=== PATIENT | female | born 1980 | race Caucasian/White ===

== ENCOUNTER 2017-07-26 17:38 | Emergency (ER) | payer OTHER ==
--- NOTE | 2017-07-26 17:51 | EDPHY ---
H & P Time Seen by Provider: 07/26/17 17:50 HPI/ROS: HPI: This is a 37-year-old female who presents with Chief Complaint: Pain in left side Location: Left side Quality: Pain Duration: Prior to arrival Signs and Symptoms: no fever, + nausea, no vomiting, no hematemesis, no blood in stool, no abdominal bloating, no diarrhea, no back pain, no urinary symptoms , no vaginal discharge/bleeding, no indigestion, no chest pain, no shortness of breath Timing: Acute Severity: 03/28 Context: Patient has a history of bulimia, depression, anxiety presents from her office with complaints of sudden onset of severe, 03/28, left side pain that radiates across her umbilicus accompanied by nausea. Denies fever/diarrhea /vomiting/vaginal bleeding/vaginal discharge. Patient was lying on the ground in the emergency room triage room due to the pain being so severe. She reports that she had a bowel movement today. Her last menstrual period was 1 week ago. She denies any history of kidney stones/ovarian cyst/fibroids. Denies any trauma or injury. She was able to eat breakfast and lunch today without difficulty. Modifying Factors: None Comment: ROS: see HPI Constitutional: No fever, no chills, no weight loss Eyes: No blurred vision Respiratory: No shortness of breath, no cough Cardiovascular: No chest pain, no palpitations Gastrointestinal: + nausea, no vomiting, no diarrhea, no hematemesis, no blood in stool Genitourinary: No dysuria, no blood in urine Extremities: No myalgias, no edema Neurologic: No weakness, no numbness Skin: No rashes, no petechiae Hematologic: No bruising, no bleeding MEDICAL/SURGICAL/SOCIAL HISTORY: Medical history: HX Bulimia 2002, Hx Depression/Anxiety ongoing (fine at the moment per pt), 06/2013, Rash contact dermatitis/psoriasis to Leg, Thrombosed hemorrhoid Surgical history: Denies Social history: Employed CONSTITUTIONAL: Moderate distress, adult white female lying in position, awake and alert, no obvious distress HEENT: Atraumatic and normocephalic, PERRL, EOMI. Tympanic membranes clear. Oropharynx clear, no exudate and moist pink mucosa. Airway patent. No lymphadenopathy. No meningismus. Cardiovascular: Normal S1/S2, regular rate, regular rhythm, without murmur rub or gallop. PULMONARY/CHEST: Symmetrical and nontender. Clear to auscultation bilaterally. Good air movement. No accessory muscle usage. ABDOMEN: Soft, nondistended, generalized tenderness with moderate pain in the left mid abdomen, no rebound, no guarding, no peritoneal signs, no masses or organomegaly. No CVAT. EXTREMITIES: 2/2 pulses, strength 5/5, no deformities, no clubbing, no cyanosis or edema. No pain in her abdomen with lifting her legs up off of the bed or flexing her hips. NEUROLOGICAL: no focal neuro deficits. GCS 15. SKIN: Warm and dry, no erythema. no rash. Good capillary refill. Source: Patient Exam Limitations: No limitations - Personal History Tetanus Vaccine Date: 2014 - Medical/Surgical History Other PMH: HX Bulemia 2002, Hx Depression/Anxiety ongoing (fine at the moment per pt), 06/2013, Rash contact dermatitis/psoriasis to Leg, Thrombosed hemmrhoid - Social History Smoking Status: Never smoked Constitutional: Initial Vital Signs Temperature (C) 36.4 C 07/26/17 17:50 Heart Rate 83 07/26/17 17:50 Respiratory Rate 18 07/26/17 17:50 Blood Pressure 96/59 L 07/26/17 17:50 O2 Sat (%) 100 07/26/17 17:50 O2 Delivery Mode Room Air Allergies/Adverse Reactions: No Known Allergies Allergy (Verified 07/26/17 17:50) Home Medications: Medication Instructions Recorded Ondansetron Odt [Zofran Odt 4 mg 4 mg PO Q4 PRN #12 tab 07/26/17 (*)] Tamsulosin HCl [Flomax 0.4 MG (*)] 0.4 mg PO DAILY #10 cap 07/26/17 oxyCODONE/APAP 5/325 [Percocet 1 - 2 tab PO Q6H PRN #20 tab 07/26/17 5/325 (*)] Medical Decision Making - Diagnostics Imaging Results: Imaging Impressions Abdomen CT 07/26/17 17:56 Impression: 1. Moderate left hydroureteronephrosis secondary to a 6.5-mm obstructing calculus in the mid to distal left ureter, mid pelvis region. 2. No right nephrolithiasis or hydronephrosis. Findings and recommendations discussed with Emergency Department Physician Door Liner, Marielle Negron PA-C, at 1923 hours, on July 26, 2017. Final report concurs with initial preliminary interpretation. Pelvic/Renal Ultrasound 07/26/17 17:56 Impression: 1. Normal left ovary, without torsion or adnexal masses. 2. Nonvisualization of the right ovary. 3. Normal uterus. 4. No significant free fluid in the pelvis. Findings and recommendations discussed with Emergency Department Physician Door Liner, Marielle Negrno PA-C, at 1858 hours, on July 26, 2017. Final report concurs with initial preliminary interpretation. ED Course/Re-evaluation: Urinalysis, labs, IV fluids, CT abdomen and pelvis scan, pelvic ultrasound, IV medications ordered Patient given IV Dilaudid 1 mg, 1 L normal saline, 1 IV Zofran Vital signs reviewed and unremarkable. 1833: Notified by the nurse that patient is still wailing and writhing in bed despite the 1 mg of Dilaudid given. IV Haldol 2.5 mg ordered Called by Radiology who says reports that CT abdomen and pelvis scan shows a left ureterolithiasis measuring 6.5 cm in the mid pelvis with moderate hydronephrosis P.o. Flomax and IV Toradol given. Urinated again and without difficulty. Pelvic ultrasound shows no signs of ovarian torsion/ovarian cyst rupture Reassessed patient: abdomen soft and nontender. Walking out of the emergency room holding hands with her co-worker laughing and giggling. This patient was seen under the supervision of my secondary supervising physician. I evaluated care for this patient independently. Differential Diagnosis: Abdominal pain in a female including but not limited to ovarian cyst, pelvic inflammatory disease, ovarian torsion, urinary tract infection, and appendicitis. - Data Points Laboratory Results: Laboratory Results 07/26/17 17:55 07/26/17 17:55 07/26/17 07/26/17 07/26/17 19:20 17:55 17:55 WBC RBC Hgb Hct MCV MCH MCHC RDW Plt Count MPV Neut % (Auto) Lymph % (Auto) [place] % (Auto) Eos % (Auto) Baso % (Auto) Nucleat RBC Rel Count Absolute Neuts (auto) Absolute Lymphs (auto) Absolute Monos (auto) Absolute Eos (auto) Absolute Basos (auto) Absolute Nucleated RBC Immature Gran % Immature Gran # Sodium 139 mEq/L mEq/L (135-145) Potassium 3.4 mEq/L L mEq/L (3.5-5.2) Chloride 102 mEq/L mEq/L (97-110) Carbon Dioxide 21 mEq/l L mEq/l (22-31) Anion Gap 16 mEq/L mEq/L (8-16) BUN 12 mg/dL mg/dL (7-23) Creatinine 0.8 mg/dL mg/dL (0.6-1.0) Estimated GFR > 60 Glucose 116 mg/dL H mg/dL (70-100) Calcium 9.4 mg/dL mg/dL (8.5-10.4) Total Bilirubin 0.7 mg/dL mg/dL (0.1-1.4) Conjugated Bilirubin 0.3 mg/dL mg/dL (0.0-0.5) Unconjugated Bilirubin 0.4 mg/dL mg/dL (0.0-1.1) AST 22 IU/L IU/L (14-46) ALT 30 IU/L IU/L (9-52) Alkaline Phosphatase 74 IU/L IU/L (38-126) Total Protein 7.7 g/dL g/dL (6.3-8.2) Albumin 4.4 g/dL g/dL (3.5-5.0) Lipase 109 IU/L IU/L (23-300) Beta HCG, Qual NEGATIVE Urine Color YELLOW Urine Appearance HAZY Urine pH 7.0 (5.0-7.5) Ur Specific [place] 1.032 H (1.002-1.030) Urine Protein NEGATIVE (NEGATIVE) Urine Ketones 1+ H (NEGATIVE) Urine Blood 3+ H (NEGATIVE) Urine Nitrate NEGATIVE (NEGATIVE) Urine Bilirubin NEGATIVE (NEGATIVE) Urine Urobilinogen 2.0 EU H EU (0.2-1.0) Ur Leukocyte Esterase NEGATIVE (NEGATIVE) Urine RBC 50-182 /hpf H /hpf (0-3) Urine WBC 3-5 /hpf H /hpf (0-3) Ur Epithelial Cells TRACE /lpf /lpf (NONE-1+) Urine Mucus TRACE /lpf /lpf (NONE-1+) Urine Glucose NEGATIVE (NEGATIVE) 07/26/17 17:55 WBC 11.09 10^3/uL H 10^3/uL (3.80-9.50) RBC 4.74 10^6/uL 10^6/uL (4.18-5.33) Hgb 15.4 g/dL g/dL (12.6-16.3) Hct 43.8 % % (38.0-47.0) MCV 92.4 fL fL (81.5-99.8) MCH 32.5 pg pg (27.9-34.1) MCHC 35.2 g/dL g/dL (32.4-36.7) RDW 11.9 % % (11.5-15.2) Plt Count 281 10^3/uL 10^3/uL (150-400) MPV 10.1 fL fL (8.7-11.7) Neut % (Auto) 41.2 % % (39.3-74.2) Lymph % (Auto) 53.8 % H % (15.0-45.0) Town[place] % (Auto) 3.4 % L % (4.5-13.0) Eos % (Auto) 0.9 % % (0.6-7.6) Baso % (Auto) 0.4 % % (0.3-1.7) Nucleat RBC Rel Count 0.0 % % (0.0-0.2) Absolute Neuts (auto) 4.57 10^3/uL 10^3/uL (1.70-6.50) Absolute Lymphs (auto) 5.97 10^3/uL H 10^3/uL (1.00-3.00) Absolute Monos (auto) 0.38 10^3/uL 10^3/uL (0.30-0.80) Absolute Eos (auto) 0.10 10^3/uL 10^3/uL (0.03-0.40) Absolute Basos (auto) 0.04 10^3/uL 10^3/uL (0.02-0.10) Absolute Nucleated RBC 0.00 10^3/uL 10^3/uL (0-0.01) Immature Gran % 0.3 % % (0.0-1.1) Immature Gran # 0.03 10^3/uL 10^3/uL (0.00-0.10) Sodium Potassium Chloride Carbon Dioxide Anion Gap BUN Creatinine Estimated GFR Glucose Calcium Total Bilirubin Conjugated Bilirubin Unconjugated Bilirubin AST ALT Alkaline Phosphatase Total Protein Albumin Lipase Beta HCG, Qual Urine Color Urine Appearance Urine pH Ur Specific [place] Urine Protein Urine Ketones Urine Blood Urine Nitrate Urine Bilirubin Urine Urobilinogen Ur Leukocyte Esterase Urine RBC Urine WBC Ur Epithelial Cells Urine Mucus Urine Glucose Medications Given: Discontinued Medications Haloperidol Lactate (Haldol Injection) 2.5 mg IVP EDNOW ONE Stop: 07/26/17 18:34 Last Admin: 07/26/17 18:38 Dose: 2.5 mg Hydromorphone HCl (Dilaudid) 1 mg IVP EDNOW ONE Stop: 07/26/17 17:56 Last Admin: 07/26/17 18:00 Dose: 1 mg Sodium Chloride (Ns) 1,000 mls @ 0 mls/hr IV EDNOW ONE; Wide Open PRN Reason: Protocol Stop: 07/26/17 17:56 Last Admin: 07/26/17 17:59 Dose: 1,000 mls Sodium Chloride (Ns) 1,000 mls @ 0 mls/hr IV ONCE ONE PRN Reason: Wide Open Stop: 07/26/17 18:01 Last Admin: 07/26/17 18:00 Dose: 1,000 mls Sodium Chloride (Ns) 1,000 mls @ 0 mls/hr IV EDNOW ONE; Wide Open PRN Reason: Protocol Stop: 07/26/17 19:46 Last Admin: 07/26/17 20:25 Dose: Not Given Ketorolac Tromethamine (Toradol) 15 mg IVP EDNOW ONE Stop: 07/26/17 19:34 Last Admin: 07/26/17 20:06 Dose: 15 mg Ondansetron HCl (Zofran) 4 mg IVP EDNOW ONE Stop: 07/26/17 17:56 Last Admin: 07/26/17 18:00 Dose: 4 mg Oxycodone/Acetaminophen (Percocet 5/325) 2 tab PO EDNOW ONE Stop: 07/26/17 20:45 Last Admin: 07/26/17 20:15 Dose: 2 tab Tamsulosin HCl (Flomax) 0.4 mg PO EDNOW ONE Stop: 07/26/17 19:34 Last Admin: 07/26/17 20:07 Dose: 0.4 mg Departure - Departure Disposition: Home, Routine, Self-Care Clinical Impression: Renal colic on left side, Ureterolithiasis Condition: Good Instructions: Renal Colic (ED), Ureteral Stones (ED) Additional Instructions: Consume a minimum of 8-10 glasses of water or electrolyte fluid replacement drinks that include Gatorade, Powerade, Pedialyte. Eat a bland diet for the next 48 hours and then slowly advance as tolerated. Strain all of your urine and keep your stone to give to Urology on follow-up. Take Flomax daily until you pass your stone. Take Zofran 1 tablet every 4 hr as needed for nausea vomiting. Take Percocet 1-2 tabs every 6 hr as needed for severe breakthrough pain. Follow-up with Urology in 1-2 weeks. Return to the Emergency Room if symptoms do not resolve in the next 48-72 hours , you spike a fever > 102 F, or experience intractable abdominal pain/nausea/ vomiting. Referrals: Ki Strickland MD [Medical Doctor] - As per Instructions Prescriptions: Ondansetron Odt [Zofran Odt 4 mg (*)] 4 mg PO Q4 PRN #12 tab PRN Reason: Nausea/Vomiting, Use 1st oxyCODONE/APAP 5/325 [Percocet 5/325 (*)] 1 - 2 tab PO Q6H PRN #20 tab PRN Reason: Pain, Severe Tamsulosin HCl [Flomax 0.4 MG (*)] 0.4 mg PO DAILY #10 cap
[2017-07-26] MEDS ORDERED: NS 1,000 ML IV ONE ×3 (17:55→19:45)
[2017-07-26] MEDS ORDERED: HYDROmorphONE/DILAUDID 1 MG/ML INJ IVP ONE (17:55)
[2017-07-26] MEDS ORDERED: ONDANSETRON 4 MG/2 ML VIAL IVP ONE (17:55)
[2017-07-26 18:23] LABS: PLATELET COUNT 281 10^3/uL (150-400)
[2017-07-26] MEDS ORDERED: HALOPERIDOL LACT 5 MG/ML INJ IVP ONE (18:33)
[2017-07-26] MEDS ORDERED: IOPAMIDOL (ISOVUE-300) 100 ML BTL ONE (18:53)
[2017-07-26] MEDS ORDERED: KETOROLAC 15 MG/1 ML SDV IVP ONE (19:33)
[2017-07-26] MEDS ORDERED: TAMSULOSIN HCL 0.4 MG CAP PO ONE (19:33)
[2017-07-26] MEDS ORDERED: OXYCODONE/APAP 5/325 TAB ONE (20:23)
[2017-07-26 20:28] VITALS: BP 123/82; PULSE 69; RESP 16; TEMP 97.7; O2SAT 94
[2017-07-26] MEDS ORDERED: OXYCODONE/APAP 5/325 TAB PO ONE (20:44)
== END 2017-07-26 20:28 | disposition home or self-care (01) ==
DX: N20.1 Calculus of ureter (principal); E86.9 Volume depletion, unspecified
CPT/HCPCS: 96374; J1170; J1630; J1885; J2405; Q9967

== ENCOUNTER → 2017-08-16 | Outpatient (CLI) | payer OTHER | LOC: FIMAGING 15:40 | PROVIDERS: ATTEND Nurse Practitioner Adult Health | DX: Z09 Encounter for follow-up examination after completed treatment for conditions other than malignant neoplasm (principal); Z87.442 Personal history of urinary calculi ==